=== PATIENT | male | born 1950 | race Caucasian/White ===

== ENCOUNTER 2016-07-09 08:31 | Inpatient (IN) | payer MEDICARE ==
[2016-07-09] MEDS ORDERED: SODIUM CHLORIDE 0.9% 1,000 ML IV STA (08:52)
[2016-07-09] MEDS ORDERED: RX INFO: IV CONTRAST WAS GIVEN 1 EACH MISC MISCELLANE PRN (08:52)
--- NOTE | 2016-07-09 08:55 | ED ---
General Adult HPI - General Chief complaint: Syncope Stated complaint: SYNCOPE Time Seen by Provider: 07/09/16 08:35 Source: patient, family, EMS, RN notes reviewed Mode of arrival: EMS Limitations: no limitations - History of Present Illness Initial comments: Patient is a pleasant 65-year-old male presenting to the emergency department following syncopal episode. Episode occurred this morning. Patient use the restroom and was walking to the couch. Patient felt nauseous and then passed out. No injury during the syncopal episode. Patient was unresponsive for around a minute. Patient feels normal at this time and has no complaints. Patient did have right knee surgery done just a couple of days ago at [facility]. Patient did have some discomfort prior to syncope. Patient states it was more than he normally has however was not terrible. No chest pain or dyspnea. No abdominal pain. No neck or back pain. No headache or confusion. - Related Data Home Medications Medication Instructions Recorded Confirmed Aspirin EC [Ecotrin] 325 mg PO BID 07/09/16 07/09/16 Celecoxib [CeleBREX] 200 mg PO BID 07/09/16 07/09/16 Finasteride [Proscar] 5 mg PO DAILY 07/09/16 07/09/16 Lisinopril-Hctz 10-12.5 mg 1 tab PO DAILY 07/09/16 07/09/16 [Zestoretic 10-12.5] Ropivacaine 0.2% 1 dose SQ-PUMP DAILY 07/09/16 07/09/16 oxyCODONE HCL [Roxicodone] 5 - 10 mg PO Q4H PRN 07/09/16 07/09/16 Allergies Allergy/AdvReac Type Severity Reaction Status Date / Time No Known Allergies Allergy Verified 07/09/16 10:42 Review of Systems ROS Statement: Those systems with pertinent positive or pertinent negative responses have been documented in the HPI. ROS Other: All systems not noted in ROS Statement are negative. Constitutional: Denies: fever Eyes: Denies: eye pain ENT: Denies: ear pain Respiratory: Denies: cough, dyspnea Cardiovascular: Denies: chest pain, palpitations Endocrine: Denies: fatigue Gastrointestinal: Reports: nausea. Denies: abdominal pain, vomiting Genitourinary: Denies: dysuria Musculoskeletal: Denies: back pain Skin: Denies: rash Neurological: Denies: headache, confusion Past Medical History History of Any Multi-Drug Resistant Organisms: None Reported Past Surgical History: Orthopedic Surgery Additional Past Surgical History / Comment(s): Repaired hernia, Left Knee repair , Compound fracture wrist. Past Psychological History: No Psychological Hx Reported Smoking Status: Never smoker Past Alcohol Use History: Occasional Past Drug Use History: None Reported General Exam Limitations: no limitations General appearance: alert, in no apparent distress Head exam: Present: atraumatic Eye exam: Present: normal appearance, PERRL, EOMI ENT exam: Present: normal oropharynx Neck exam: Present: normal inspection. Absent: tenderness Respiratory exam: Present: normal lung sounds bilaterally Cardiovascular Exam: Present: regular rate, normal rhythm Expanded Peripheral pulses: 2+: Radial (R), Radial (L), Dorsalis Pedis (R), Dorsalis Pedis (L) GI/Abdominal exam: Present: soft. Absent: tenderness Extremities exam: Present: other (Right knee with small bandages from recent surgery.). Absent: pedal edema, calf tenderness Neurological exam: Present: alert, oriented X3, CN II-XII intact. Absent: motor sensory deficit Expanded Patient oriented to: Present: person, place, time Speech: Present: fluid speech Cranial nerves: EOM's Intact: Normal, Facial Sensation: Normal Sensory exam: Upper Extremity Light Touch: Normal, Lower Extremity Light Touch: Normal Motor strength exam: RUE: 5, LUE: 5, RLE: 5, LLE: 5 Eye Response: (4) open spontaneously Motor Response: (6) obeys commands Verbal Response: (5) oriented Psychiatric exam: Present: normal affect, normal mood Skin exam: Absent: rash Course Vital Signs 07/09/16 07/09/16 08:35 10:52 Temperature 98.2 F Pulse Rate 87 Pulse Rate [ 95 Right Sitting Pulse Oximetery ] Pulse Rate [ 97 Right Standing Pulse Oximetery ] Pulse Rate [ 88 Right Supine Pulse Oximetery ] Respiratory 18 18 Rate Blood Pressure 129/78 Blood Pressure 123/73 [Right Arm Sitting] Blood Pressure 116/62 [Right Arm Standing] Blood Pressure 131/81 [Right Arm Supine] O2 Sat by Pulse 99 98 Oximetry EKG Findings - EKG Comments: EKG Findings:: Normal sinus rhythm at 84. Normal intervals. Normal axis. Normal QRS. Normal ST-T. Medical Decision Making - Medical Decision Making Patient reexamined and resting comfortably in bed. Patient and family were updated on results including borderline size of aorta. They are aware of need for follow-up regarding this and further monitoring in the future. Also updated on plan. Case discussed in detail with Dr. lao, who will admit for Dr. Sebastian. - Lab Data Result diagrams: 07/09/16 08:41 07/09/16 08:41 Lab Results 07/09/16 07/09/16 07/09/16 Range/Units 08:41 08:41 08:41 WBC 10.6 (3.8-10.6) k/uL RBC 3.64 L (4.30-5.90) m/uL Hgb 11.9 L (13.0-17.5) gm/dL Hct 36.0 L (39.0-53.0) % MCV 98.9 (80.0-100.0) fL MCH 32.8 (25.0-35.0) pg MCHC 33.1 (31.0-37.0) g/dL RDW 12.9 (11.5-15.5) % Plt Count 167 (150-450) k/uL Neutrophils % 84 % Lymphocytes % 11 % Monocytes % 3 % Eosinophils % 1 % Basophils % 0 % Neutrophils # 8.8 H (1.3-7.7) k/uL Lymphocytes # 1.1 (1.0-4.8) k/uL Monocytes # 0.4 (0-1.0) k/uL Eosinophils # 0.1 (0-0.7) k/uL Basophils # 0.0 (0-0.2) k/uL PT (9.0-12.0) sec INR (<1.1) APTT (22.0-30.0) sec Sodium 141 (137-145) mmol/L Potassium 5.2 H (3.5-5.1) mmol/L Chloride 105 (98-107) mmol/L Carbon Dioxide 26 (22-30) mmol/L Anion Gap 10 mmol/L BUN 15 (9-20) mg/dL Creatinine 0.88 (0.66-1.25) mg/dL Est GFR (MDRD) Af Amer >60 (>60 ml/min/1.73 sqM) Est GFR (MDRD) Non-Af >60 (>60 ml/min/1.73 sqM) Glucose 208 H (74-99) mg/dL Calcium 8.8 (8.4-10.2) mg/dL Total Bilirubin 0.9 (0.2-1.3) mg/dL AST 19 (17-59) U/L ALT 32 (21-72) U/L Alkaline Phosphatase 61 (38-126) U/L Total Creatine Kinase 152 (55-170) U/L CK-MB (CK-2) 1.1 (0.0-2.4) ng/mL CK-MB (CK-2) Rel Index 0.7 Troponin I <0.012 (0.000-0.034) ng/mL Total Protein 6.2 L (6.3-8.2) g/dL Albumin 3.7 (3.5-5.0) g/dL Urine Color Urine Appearance (Clear) Urine pH (5.0-8.0) Ur Specific [place] (1.001-1.035) Urine Protein (Negative) Urine Glucose (UA) (Negative) Urine Ketones (Negative) Urine Blood (Negative) Urine Nitrite (Negative) Urine Bilirubin (Negative) Urine Urobilinogen (<2.0) mg/dL Ur Leukocyte Esterase (Negative) 07/09/16 07/09/16 Range/Units 08:41 09:16 WBC (3.8-10.6) k/uL RBC (4.30-5.90) m/uL Hgb (13.0-17.5) gm/dL Hct (39.0-53.0) % MCV (80.0-100.0) fL MCH (25.0-35.0) pg MCHC (31.0-37.0) g/dL RDW (11.5-15.5) % Plt Count (150-450) k/uL Neutrophils % % Lymphocytes % % Monocytes % % Eosinophils % % Basophils % % Neutrophils # (1.3-7.7) k/uL Lymphocytes # (1.0-4.8) k/uL Monocytes # (0-1.0) k/uL Eosinophils # (0-0.7) k/uL Basophils # (0-0.2) k/uL PT 10.7 (9.0-12.0) sec INR 1.1 (<1.1) APTT 22.7 (22.0-30.0) sec Sodium (137-145) mmol/L Potassium (3.5-5.1) mmol/L Chloride (98-107) mmol/L Carbon Dioxide (22-30) mmol/L Anion Gap mmol/L BUN (9-20) mg/dL Creatinine (0.66-1.25) mg/dL Est GFR (MDRD) Af Amer (>60 ml/min/1.73 sqM) Est GFR (MDRD) Non-Af (>60 ml/min/1.73 sqM) Glucose (74-99) mg/dL Calcium (8.4-10.2) mg/dL Total Bilirubin (0.2-1.3) mg/dL AST (17-59) U/L ALT (21-72) U/L Alkaline Phosphatase (38-126) U/L Total Creatine Kinase (55-170) U/L CK-MB (CK-2) (0.0-2.4) ng/mL CK-MB (CK-2) Rel Index Troponin I (0.000-0.034) ng/mL Total Protein (6.3-8.2) g/dL Albumin (3.5-5.0) g/dL Urine Color Yellow Urine Appearance Clear (Clear) Urine pH 6.0 (5.0-8.0) Ur Specific [place] 1.018 (1.001-1.035) Urine Protein Trace H (Negative) Urine Glucose (UA) 2+ H (Negative) Urine Ketones Negative (Negative) Urine Blood Negative (Negative) Urine Nitrite Negative (Negative) Urine Bilirubin Negative (Negative) Urine Urobilinogen <2.0 (<2.0) mg/dL Ur Leukocyte Esterase Negative (Negative) - Radiology Data Radiology results: image reviewed (Computed tomography scan of the chest shows no evidence of pulmonary embolism. Coronary artery disease is present. Ascending aortic aneurysm 3.9 cm. Computed tomography scan of the brain shows no acute intercranial hemorrhage.) Disposition Clinical Impression: Syncope Disposition: ADMITTED IP TO THIS HOSP
[2016-07-09 09:08] LABS: Basophils % (A) 0 %; CH 32.8; CHCM 33.3; Eosinophils # (A) 0.1 k/uL (0-0.7); Eosinophils % (A) 1 %; HGB 11.9 gm/dL (13.0-17.5); Luc # (Auto) 0.08; Luc % (Auto) 1; Lymphocytes # (A) 1.1 k/uL (1.0-4.8); Lymphocytes % (A) 11 %; MCH 32.8 pg (25.0-35.0); MCHC 33.1 g/dL (31.0-37.0); MCV 98.9 fL (80.0-100.0); Mean Platelet Volume 6.6; Monocytes # (A) 0.4 k/uL (0-1.0); Monocytes % (A) 3 %; Neutrophils # (A) 8.8 k/uL (1.3-7.7); Neutrophils % (A) 84 %; RBC 3.64 m/uL (4.30-5.90); RDW 12.9 % (11.5-15.5); WBC 10.6 k/uL (3.8-10.6); WBC (Perox) 10.66
[2016-07-09 09:18] LABS: ALT 32 U/L (21-72); AST 19 U/L (17-59); Alkaline Phosphatase 61 U/L (38-126); Anion Gap 10 mmol/L; Blood Urea Nitrogen 15 mg/dL (9-20); Calcium 8.8 mg/dL (8.4-10.2); Carbon Dioxide 26 mmol/L (22-30); Chloride 105 mmol/L (98-107); Glucose 208 mg/dL (74-99); Non-African American GFR(MDRD) >60 (>60 ml/min/1.73 sqM); Potassium 5.2 mmol/L (3.5-5.1); Sodium 141 mmol/L (137-145); Total Bilirubin 0.9 mg/dL (0.2-1.3); Total Protein 6.2 g/dL (6.3-8.2)
[2016-07-09 09:23] LABS: INR 1.1 (<1.1); Partial Thromboplastin Time 22.7 sec (22.0-30.0); Prothrombin Time 10.7 sec (9.0-12.0)
[2016-07-09 09:24] LABS: Appearance,Urine Clear (Clear); Bilirubin,Urine Negative (Negative); Glucose,Urine (UA) 2+ (Negative); Ketones,Urine Negative (Negative); Leukocyte Esterase,Urine Negative (Negative); Nitrite,Urine Negative (Negative); Protein,Urine Trace (Negative); Specific Gravity,Urine 1.018 (1.001-1.035); UA Billing (MACRO vs. MICRO) CHEM; Urobilinogen,Urine <2.0 mg/dL (<2.0)
[2016-07-09 09:27] LABS: Creatine Kinase 152 U/L (55-170)
[2016-07-09 09:41] LABS: Creatine Kinase MB 1.1 ng/mL (0.0-2.4); Troponin I <0.012 ng/mL (0.000-0.034)
--- NOTE | 2016-07-09 10:02 | CT ---
EXAMINATION TYPE: CT brain wo con DATE OF EXAM: 07/09/2016 9:55 AM COMPARISON: NONE HISTORY: syncope CT DLP: 1022 mGycm Automated exposure control for dose reduction was used. FINDINGS: There is no acute intracranial hemorrhage, mass effect, or midline shift identified. The ventricles and sulci are within normal limits in size. The globes are intact and the visualized sinuses are rem arkable for inflammatory change in the left maxillary sinus. IMPRESSION: No acute intracranial hemorrhage, mass effect, or midline shift is seen.
--- NOTE | 2016-07-09 10:13 | CT ---
EXAMINATION TYPE: CT angio chest DATE OF EXAM: 07/09/2016 9:56 AM COMPARISON: NONE HISTORY: Syncope, recent knee surgery CT DLP: 355.8 mGycm Automated exposure control for dose reduction was used. CONTRAST: CTA scan of the thorax is performed with IV Contrast, patient injected with 100 mL of Omnipaque 350, pulmonary embolism protocol. MIP images are created and reviewed. 3D reconstructed images are creat ed on an independent workstation and reviewed. FINDINGS: LUNGS: Patchy basilar atelectatic changes are present. Small hiatal hernia is present. AORTA: Ascending aorta is borderline enlarged measuring 3.9 cm, pulmonary artery order line at 3.2 c m, consider pulmonary artery hypertension . MEDIASTINUM: There is satisfactory enhancement of the pulmonary artery and its branches, there is no CT evidence for pulmonary embolism. There are no greater than 1 cm hilar or mediastinal lymph nodes. Some prevascular nodes are present. There are coronary artery calcifications. No pericardial effusi on is seen. OTHER: No additional significant abnormality is seen. IMPRESSION: NO EVIDENT PULMONARY EMBOLISM. CORONARY ARTERY DISEASE, ASCENDING AORTIC ANEURYSM, POSSIBLE PULMONARY ARTERY HYPERTENSION AND PREVASCULAR LYMPH NODE. CONSIDER FOLLOW-UP.
[2016-07-09] MEDS ORDERED: MORPHINE SULFATE 4 MG/ML SYRINGE IV PRN (10:59)
[2016-07-09] MEDS ORDERED: NALOXONE 0.4 MG/ML 1 ML VIAL IV PRN (10:59)
[2016-07-09] MEDS ORDERED: SODIUM CHLORIDE 0.9% 1,000 ML IV SCH (11:00)
[2016-07-09] MEDS ORDERED: LISINOPRIL-HCTZ 10-12.5 MG 1 EACH TAB PO SCH (12:30)
[2016-07-09] MEDS: MELOXICAM 7.5 MG TAB PO SCH ×2 (14:03→21:43)
[2016-07-09] MEDS: ASPIRIN 325 MG TAB PO SCH ×2 (14:03→21:43)
[2016-07-09] MEDS: FINASTERIDE 5 MG TAB PO SCH (14:04)
[2016-07-09] MEDS: HYDROcodone/APAP 5-325MG 1 EACH TAB PO PRN ×3 (14:11→23:09)
--- NOTE | 2016-07-09 21:25 | HP ---
DATE OF ADMISSION: 07/09/2016 PRESENTING COMPLAINT: Passed out. HISTORY OF PRESENTING COMPLAINT: A very pleasant 65-year-old patient of Dr. Sebastian who has a history of hypertension, BPH, 2 days ago underwent a right total knee replacement at [facility], was sent home yesterday. This morning, patient went to have a bowel movement, was straining himself, did not have a bowel movement, came out and felt dizzy and then passed out. Patient was passed out for about a minute. There was no tongue biting. No incontinence. No seizure activity was reported. Denies any chest pain or palpitation. Just felt tired and run down. REVIEW OF SYSTEMS: CONSTITUTIONAL: Tired. HEENT: None. RESPIRATORY: None. CARDIOVASCULAR: None. GASTROINTESTINAL: None. GENITOURINARY: None. MUSCULOSKELETAL: Arthritic pain in the joints. DERMATOLOGICAL: None. HEMATOLOGIC: None. LYMPHATICS: None. PSYCHIATRY: None. NEUROLOGICAL: None. Past history of hypertension, BPH, osteoarthritis. PAST SURGICAL HISTORY: Left knee repair, compound wrist fracture, cataract left side. SOCIAL HISTORY: No smoking. Alcohol occasionally. Patient used to work in construction. . Family history of AAA. HOME MEDICATIONS: 1. Ropivacaine 0.2% 1 dose pump daily. 2. Celebrex 200 mg p.o. b.i.d. 3. Aspirin 325 mg p.o. b.i.d. 4. Oxycodone 5 to 10 mg q.4 p.r.n. 5. Zestoretic /12.5, 1 tablet daily. 6. Proscar 5 mg p.o. daily. ALLERGIES: None. On examination, temperature 97.9, pulse 83, respirations 16, blood pressure 116/73, pulse ox 95% on 2L. GENERAL APPEARANCE: Lying in bed, tired-appearing. EYES: Pupils equal. Conjunctivae normal. HEENT: Oral cavity normal. NECK: JVD not raised. Mass not palpable. RESPIRATORY: Effort normal. LUNGS: Clear. CARDIOVASCULAR: First and second sounds normal. No edema. ABDOMEN: Soft, nontender. Liver and spleen not palpable. LYMPHATIC: No lymph nodes palpable in neck or axillae. PSYCHIATRY: Alert and oriented x3. Mood and affect normal. MUSCULOSKELETAL: Evidence of osteoarthritis in the hands. Right knee is healing well. INVESTIGATIONS: White count 10.6, hemoglobin 11.9. Potassium 5.2, BUN and creatinine are normal. ASSESSMENT: 1. This is a patient who presents with a syncopal episode, has had surgery. Must have lost some blood, as hemoglobin is down to 11.9. His blood pressure is a bit on the lower side, too well-controlled, I guess. The patient had not eaten in the morning, eats in the morning and straining quite a bit at stool this morning when the episode occurred and most likely this is a vasovagal. Will need to rule out a cardiac cause. 2. Normocytic anemia, could be blood loss. I do not have a baseline. 3. Mild hyperkalemia. PLAN: As the blood pressure is relatively speaking too well controlled, I will hold off patient's lisinopril/hydrochlorothiazide. Patient getting some IV fluids. Home medications are resumed. Patient on telemetry. Serial cardiac enzymes are in place. Care was discussed with the patient.
[2016-07-10] MEDS: HYDROcodone/APAP 5-325MG 1 EACH TAB PO PRN ×4 (03:58→16:40)
[2016-07-10] MEDS: ASPIRIN 325 MG TAB PO SCH (08:16)
[2016-07-10] MEDS: MELOXICAM 7.5 MG TAB PO SCH (08:16)
[2016-07-10] MEDS: FINASTERIDE 5 MG TAB PO SCH (08:17)
[2016-07-10] MEDS ORDERED: ROPIVACAINE 0.2% SQ-PUMP SCH (09:00)
[2016-07-10 09:38] VITALS: RESP 18; TEMP 96.4
[2016-07-10 12:05] VITALS: BP 132/82; PULSE 89
--- NOTE | 2016-07-11 13:28 | DS ---
DATE OF ADMISSION: 07/09/2016 DATE OF DISCHARGE: 07/10/2016 FINAL DIAGNOSES: 1. Syncope probably from vasovagal and relative hypotension. 2. Normocytic anemia; could be from blood loss from recent surgery as expected. 3. Mild hyperkalemia. HOSPITAL COURSE: This is a patient who had recent surgery. The next day had a syncopal episode. Hemoglobin was a bit down. I did hold off patient's blood pressure medications, given some fluids. Telemetry remained unremarkable. Patient was told to resume his blood pressure medications when blood pressure came up to about 140 systolic. Care was discussed with the patient and family. On exam, lungs are clear. CARDIOVASCULAR: First and second sounds normal. Telemetry was unremarkable. DISCHARGE MEDICATIONS: 1. Aspirin 325 mg p.o. b.i.d. 2. Celebrex 200 mg p.o. b.i.d. 3. Proscar 5 mg p.o. daily. 4. Zestoretic 01/05.5 to be resumed when blood pressure goes up to 140 systolic. 5. Ropivacaine pain pump. 6. Oxycodone 5 to 10 mg q.4 p.r.n. Follow up with Dr. Sebastian in 2 days. Patient also will take MiraLAX every other day for constipation.
== END 2016-07-10 17:58 | disposition home or self-care (01) | DRG 316 ==
LOC: EC 08:31 → 6SEL 10:59
PROVIDERS: ADMIT Hospitalist; ATTEND Hospitalist
DX: I95.9 Hypotension, unspecified (principal); E87.5 Hyperkalemia; I10 Essential (primary) hypertension; D64.9 Anemia, unspecified; Z98.42 Cataract extraction status, left eye; N40.0 Benign prostatic hyperplasia without lower urinary tract symptoms; Z96.651 Presence of right artificial knee joint; Z79.82 Long term (current) use of aspirin; Z79.899 Other long term (current) drug therapy
CPT/HCPCS: 36415; 70450; 71275; 80053; 81003; 82550; 82553; 84484; 85025; 85610; 85730; 93005; 99285

== ENCOUNTER → 2021-06-08 | Outpatient (CLI) | payer MEDICARE ==
--- NOTE | 2021-06-08 16:22 | NM ---
EXAMINATION TYPE: NM bone 3 phase DATE OF EXAM: 06/08/2021 COMPARISON: NONE HISTORY: 70-year-old male [id number]. Patient with right knee pain for 6 to 7 months. History of right k nee replacement 4 years ago. Technique: Triple phase bone scintigraphy was performed following the injection of 21.7 mCi Tc 99m MD P. Immediate and pool images as well as 5.5 hours post injection images acquired. Imaging centered at the bilateral knees. FINDINGS: There may be slight asymmetric hyperemia on the right. Corresponding asymmetric increased uptake on p ool images and on delayed scan as well. IMPRESSION: Increased three-phase activity about the right knee with underlying arthroplasty. Loosening not exclu ded.
== END | disposition home or self-care (01) ==
LOC: RADNMMAIN 07:18
PROVIDERS: ATTEND Orthopaedic Surgery Adult Reconstructive Orthopaedic Surgery
DX: Z96.651 Presence of right artificial knee joint (principal)
CPT/HCPCS: 78315; A9503

== ENCOUNTER 2021-08-19 05:33 | Day surgery (SDC) | payer MEDICARE ==
[2021-08-17 17:05] VITALS: BMI 24.8
[~2021-08-19 05:33] MED LIST: ACETAMINOPHEN TAB 500 MG TAB PO PRN; GABAPENTIN 300 MG CAP PO PRN; MELOXICAM 7.5 MG TAB PO PRN; ONDANSETRON 4 MG/2 ML VIAL IVP PRN; TRANEXAMIC ACID IN NACL,ISO-OS 1,000 MG in SALINE 1 100ML.BAG IVPB PRN
[2021-08-19] MEDS ORDERED: LACTATED RINGERS 1,000 ML IV ONE ×2 (05:45→08:32)
[2021-08-19] MEDS ORDERED: MIDAZOLAM 2 MG/2 ML VIAL IVP ONE (06:50)
[2021-08-19] MEDS ORDERED: NEOSTIGMINE 1 MG/ML 10 ML VIAL ONE (07:04)
[2021-08-19] MEDS ORDERED: HYDROmorphone (PF) 1 MG/ML ONE (07:04)
[2021-08-19] MEDS ORDERED: TRANEXAMIC ACID IN NACL,ISO-OS 1,000 MG/100 ML BAG ONE (07:04)
[2021-08-19] MEDS ORDERED: ROPIVACAINE 5 MG/ML 30 ML VIAL ONE (07:04)
[2021-08-19] MEDS ORDERED: ePHEDrine 50 MG/ML 1 ML VIAL ONE (07:04)
[2021-08-19] MEDS ORDERED: SUCCINYLCHOLINE CHLORIDE 100 MG/5 ML SYR IV ONE (07:04)
[2021-08-19] MEDS ORDERED: ROCURONIUM 10 MG/ML (5 ML VIAL) IV ONE (07:04)
[2021-08-19] MEDS ORDERED: GLYCOPYRROLATE 0.2 MG/ML 2 ML VIAL ONE (07:04)
[2021-08-19] MEDS ORDERED: LIDOCAINE 2% INJ 20 MG/ML (2 ML VIAL) ONE (07:04)
[2021-08-19] MEDS ORDERED: PROPOFOL 10 MG/ML 20 ML VIAL IV ONE (07:04)
[2021-08-19] MEDS ORDERED: PHENYLEPHRINE-0.9% NACL SYG 1,000 MCG/10 ML SYRINGE ONE (07:04)
[2021-08-19] MEDS ORDERED: ceFAZolin 3,000 MG in SODIUM CHLORIDE 0.9% IRRIGATIO 3,000 ML IRRIGATION ONE (07:43)
[2021-08-19] MEDS ORDERED: VANCOMYCIN 1,000 MG VIAL MISCELLANE ONE (07:43)
[2021-08-19] MEDS ORDERED: MIDAZOLAM 2 MG/2 ML VIAL IV PRN (08:27)
[2021-08-19] MEDS ORDERED: ONDANSETRON 4 MG/2 ML VIAL IVP ONE ×2 (08:27→10:40)
[2021-08-19] MEDS ORDERED: DEXAMETHASONE SOD PHOSPHATE 4 MG/ML 1 ML VIAL IV ONE (08:27)
[2021-08-19] MEDS ORDERED: LIDOCAINE 1% (10MG/ML) FOR IV START INTRADERMA PRN (08:27)
[2021-08-19] MEDS ORDERED: HYDROmorphone 0.5 MG/0.5 ML SYRINGE IVP PRN ×3 (08:27→09:43)
[2021-08-19] MEDS ORDERED: hydrOXYzine pamoate 25 MG CAP PO PRN (09:43)
[2021-08-19] MEDS ORDERED: diphenhydrAMINE 25 MG CAP PO PRN (09:43)
[2021-08-19] MEDS ORDERED: METOCLOPRAMIDE 5 MG/ML 2 ML VIAL IVP PRN (09:43)
[2021-08-19] MEDS ORDERED: ONDANSETRON 4 MG/2 ML VIAL IVP PRN (09:43)
[2021-08-19] MEDS ORDERED: PROCHLORPERAZINE SUPPOSITORY 25 MG SUPP RECTAL PRN (09:43)
--- NOTE | 2021-08-19 10:18 | OP ---
OPERATIVE REPORT DATE OF PROCEDURE: 08/19/2021. SURGEON: Tyson Quigley MD. RECREATION ASSISTANT: Lauro BAEZ. PREOPERATIVE DIAGNOSIS: Right shoulder osteoarthrosis. POSTOP DIAGNOSIS: Right Shoulder osteoarthrosis. OPERATION: Right total shoulder arthroplasty. ANESTHESIA: General endotracheal. ESTIMATED BLOOD LOSS: 200 mL. DRAINS: One deep drain. COMPLICATIONS: None apparent. DISPOSITION: Postanesthesia care unit. INDICATIONS: Mr. Boss is a very pleasant 70-year-old male with longstanding right shoulder pain. Workup including x-rays revealed advanced osteoarthrosis of the right shoulder. At this point, it is felt that he has failed conservative management and he would like to proceed with operative intervention. The risks of procedure were discussed with him in detail. These risks include, but are not limited to risk of infection, nerve damage, bleeding, pain, instability in the shoulder, loosening of the implants and deep infection. There is also risk of deep vein thrombosis which could lead to fatal pulmonary embolism. Of note, Mr. Boss has a DOCUMENTED HEAVY METAL ALLERGY. We prepared for this and only metal sensitive implants were in the room. The patient understood the risks. All of his questions with regards to the risks of procedure were answered to his satisfaction. Appropriate informed consent was obtained. DESCRIPTION OF PROCEDURE: Patient identified in preoperative holding area. Surgical site was marked by both the patient and myself. He was given 2 grams of Ancef for IV prophylactic purposes. He was then transferred to the operative suite. He was placed supine on the operative table. A general anesthetic was then administered and dosed per the anesthesia without apparent complication. Examination under anesthesia was then performed of the right shoulder. Elevation to 110 degrees. External rotation to the side was to 20 degrees. The patient was then placed into the beach chair position well-padded in preparation for surgery. Great care was taken to ensure the cervical spine was in neutral alignment, well-padded and maintained that way throughout the operative procedure. Great care was also taken to ensure that his legs were appropriately padded as well. The patient's right upper extremity was then prepped and draped in usual sterile fashion. Standard surgical pause undertaken to ensure that we were operating on the correct site and that appropriate preoperative antibiotics had been given. All staff in the room were in agreement and we proceeded. The acromion, AC joint, clavicle and coracoid were marked with a surgical pen. A planned incision starting at the level of the clavicle extending distally over the deltopectoral interval approximately 1 cm lateral to the coracoid was marked with a surgical pen. The incision was then made with a 10 blade scalpel. Dissection was carried down sharply to the deltoid fascia. Hemostasis was achieved with electrocautery. The deltopectoral interval was then identified at the level of the clavicle. A small band retractor was then placed onto the proximal deltoid. I then released the deltoid fascia on the lateral aspect of the cephalic vein. The vein was preserved and left in its bed medially. The cephalic vein was protected throughout the entire case. I then identified the clavipectoral fascia. This was incised proximally at the level of the coracoacromial ligament. The coracoacromial ligament was left intact. I then used my finger to spread the interval between the conjoined tendon of the subscapularis. I felt for the axillary nerve which was readily palpable. Subacromial and subdeltoid spaces were cleared of bursal and scar tissue. I then used a brown retractor to hold the deltoid and expose the humeral head. I then proceeded to release the subscapularis in the anterior inferior shoulder capsule. The rotator cuff was inspected. The rotator cuff was found to be intact. The rotator interval was then identified. The course of the biceps tendon was also identified. I then released the biceps tendon in the groove and tenodesed it with 0 Vicryl interrupted sutures to the surrounding soft tissue. I then released the rotator interval. This was released at the base of the coracoid and then out laterally. The subscapularis and the capsule were then released intratendinously. The subscapularis and capsule release extended distally in a lazy-S fashion approximately 1 cm medial to the biceps tendon. I then continued to release the capsule along the inferior neck in a vertical fashion to approximately the 6 o'clock position. Great care was taken to ensure the capsule was always visualized as released to avoid injuring the axillary nerve. Then brought the [place] director of investigations with the arm externally rotated and abducted. I continued to release the capsule inferomedially to the 4 o'clock position. The inferior osteophytes were now removed as well. This was done with a rongeur. I then proceeded with preparation of the humerus. I removed all the goat's germain osteophytes. I then removed the subchondral plate from the superior aspect of the humeral head utilizing a large rongeur. I then used the starting reamer to gain access to the humeral canal. This was 1 cm medial to the rotator cuff insertion and 1 cm posterior to the bicipital groove. I then prepared the humeral canal with hand reaming. I started with a 6 mm reamer and progressed incrementally in 2 mm increments until firm resistance was encountered. This was at 14 mm. The reamer handle was then left in place. I then utilized a humeral resection guide set at 30 degrees of retrotorsion. The cutting block was then set at 1-2 mm above the insertion of the rotator cuff. I then proceeded to osteotomize the humeral head with an oscillating saw. I removed the resection guide and then completed the osteotomy. I then proceeded with trial stem placement. Trial size 14 was then broached in the canal starting with a 6 mm broach and then incrementally increasing up to a 14 mm broach. The 14 mm trial stem was then left in place. I then proceeded with trial reduction. I started with a 46 x 21 x 50 head. This seemed to fit very nicely. The head fit opposite the glenoid. The rotator cuff was not tented. The internal rotation was 90 degrees. Elevation was 150 degrees and translation was one half of the head in neutral rotation and one quarter of the head inferiorly in 15-20 degrees of abduction. I then removed the trial head. The stem was left in place to protect the proximal humerus. I then proceeded with exposure of the glenoid. At this point, I did remove the remaining biceps tendon. A bone hook was then used to pull the humerus out laterally. I then inspected the joint for any loose bodies. The condition of the cuff was again inspected. The rotator cuff was in excellent condition. A Battman retractor was then placed on the posterior glenoid rim. The arm was placed in approximately 80 degrees of abduction and in slight flexion on a [place] stand. I then proceeded to remove the hypertrophic labrum to definitively identify the actual glenoid. I then selected the size of the glenoid. A size 4 glenoid seemed to fit very nicely. There were fairly significant peripheral osteophytes around the glenoid. These were removed with a rongeur. I then utilized a starting drill to make the centering hole. I then proceeded to ream the glenoid fossa. This was done with a size 4 reamer. The reaming was taken down to a paprika sign. Nice bleeding surface. I did as minimal reaming as possible to preserve as much subchondral bone as possible. There was a tiny bit of posterior inferior loss. I preferentially took off slightly more anterior glenoid with the reaming. I then proceeded to place the glenoid drill holes. The peripheral drill holes were then placed and the center hole was drilled as well. I then placed a trial size 4 glenoid and it fit very nicely on the glenoid. I then proceeded with cementing. I then [place] the wound and the bone. The drill holes were then packed with Ray-David sponges. One pack of antibiotic bone cement was prepared on the back table by the surgical elastic knitter. The peripheral drill holes were then packed with cement utilizing a 20 mL syringe. These were packed very tightly. A small amount of cement was then placed on the posterior aspect of the real glenoid component. There was not any cement placed in the central PEG. I then impacted the real glenoid component into place. It was a Biomet size 4 pegged glenoid component with the Regenerex central PEG. Excess cement was then removed utilizing a [place] elevator. Pressure was then held on the glenoid component until the cement had hardened. I then removed the Battman retractor. We then proceeded with humeral component trial reduction with the real glenoid. The 46 x 21 x 50 head was then placed back onto the stem. Again, this was taken through a trial. The head set opposite of the glenoid. The rotator cuff was not tented. Elevation was to 150 degrees; internal rotation at 90 degrees and translation was one half of the head in neutral rotation and one quarter of the head in 15-20 degrees of abduction. I then had the outside dealer sales representative open a size 14 Biomet mini stem and a 46 x 21 x 51 mm real head. I then placed multiple 0 Vicryl sutures in the rotator interval prior to placing the real stem. The real stem was then impacted into the canal in 30 degrees of retrotorsion. The Carmen taper was dried and the real head was then impacted onto the stem. The shoulder was then reduced. I then proceeded with closure. Again, the wound and the joint was thoroughly irrigated with sterile saline solution with antibiotic added. Aricept antiseptic irrigation was also utilized at this time. The rotator interval sutures were closed tightly. The subscapularis and anterior capsule were then repaired with interrupted #2 FiberWire sutures. A deep drain was then placed and brought out superiorly away from the incision. At this time, I did feel for the axillary nerve which was readily palpable as well and was uninjured. Approximately 500 mg of vancomycin powder was placed deep. The deltopectoral was then closed with 0-Vicryl interrupted suture. The remaining 500 mg of vancomycin powder was then placed subcutaneously. The subcutaneous tissue was then closed with 2-0 Vicryl interrupted suture and the skin was closed with a running 3-0 Quill suture. Sterile compressive dressings were applied. The patient's right upper extremity was placed into a shoulder immobilizer. All sponge and needle counts were deemed correct prior to closure. The patient tolerated procedure without apparent complication. He was transferred to recovery room in stable condition. TIGRE / OSMAR: [id number] /
--- NOTE | 2021-08-19 14:45 | XR ---
Right shoulder Limited HISTORY: Postop Single frontal view of the right shoulder Patient is status post right shoulder arthroplasty. There is anatomic alignment on this single view a nd an indwelling drain. Arthropathy present at the acromioclavicular joint. Visualized portions of th e right lung are unremarkable. There are overlying artifacts. Lucency in the soft tissues consistent with postop change. IMPRESSION: Orthopedic follow-up.
[2021-08-19] MEDS: LACTATED RINGERS 1,000 ML IV SCH ×3 (16:42→20:09)
[2021-08-19] MEDS: SENNOSIDES-DOCUSATE SODIUM 1 EACH TAB PO PRN (17:23)
[2021-08-19] MEDS: HYDROcodone/APAP 7.5-325MG 1 EACH TAB PO PRN ×2 (17:23→22:08)
--- NOTE | 2021-08-19 17:24 | P.ANPRN ---
Procedure Note - Anesthesia - Nerve Block Performed Right Interscalene Time Out Performed: Yes (06:49) Date of Procedure: 08/19/21 Procedure Start Time: :49 Procedure Stop Time: :59 Location of Patient: PreOp Indication: Acute Post-Operative Pain, Requested by Surgeon (Dr Quigley) Sedation Type: Sedate with meaningful contact maintained Preparation: Sterile Prep Position: Supine Catheter: None Needle Types: Pajunk Needle Gauge: Other (see comment) (22g) Ultrasound used to visualize needle placement: Yes Ultrasound used to observe medication spread: Yes Injectate: 0.5% Ropivacaine (see comment for volume) (20cc) Blood Aspirated: No Pain Paresthesia on Injection Noted: No Resistance on Injection: Normal Image Stored and Saved: Yes Events: Uneventful and Well Tolerated
[2021-08-19] MEDS: HYDROmorphone 0.5 MG/0.5 ML SYRINGE IVP PRN (19:29)
[2021-08-20] MEDS: HYDROmorphone 0.5 MG/0.5 ML SYRINGE IVP PRN ×2 (00:27→03:32)
[2021-08-20] MEDS: LACTATED RINGERS 1,000 ML IV SCH ×3 (04:48→16:22)
[2021-08-20] MEDS: HYDROcodone/APAP 7.5-325MG 1 EACH TAB PO PRN ×4 (07:56→21:46)
--- NOTE | 2021-08-20 10:36 | P.DS ---
Providers Expected date of discharge: 08/20/21 Attending physician: Tyson Quigley Consults: 08/19/21 09:43 Consult Physician Routine Consulting Provider: Rafael Velazco Consult Reason/Comments: post op medical management Do you want consulting provider notified?: Yes Primary care physician: Tahir Sebastian - Discharge Diagnosis(es) (1) Osteoarthritis of right shoulder Patient was admitted to the OR on 08/19/21 to undergo a right total shoulder arthroplasty. He had failed conservative measures as an outpatient and desired to proceed with elective surgery after given informed consent. He underwent the above procedure which he tolerated well without complication. Postoperative hospital course has remained without complication. On day of discharge he is afebrile, vital signs stable, labs within acceptable ranges, tolerating by mouth meds and diet, voiding without difficulty, positive flatus, denies abdominal pain or calf pain, pain is controlled on oral pain medication and has no new complaints. Wound is benign, neurovascular status is intact, calf is soft and nontender, abdomen soft and nontender. Review of systems is negative for numbness, tingling, fever, chills, chest pain, shortness of breath, nausea, vomiting, dizziness, headaches, slurred speech or other. Current Visit: Yes Status: Acute Priority: Medium Procedures: Right TSA Patient Condition at Discharge: Good Plan - Discharge Summary Discharge Rx Participant: Yes New Discharge Prescriptions: New Docusate [Colace] 100 mg PO BID #60 capsule Doxycycline Hyclate 100 mg PO BID #10 tab HYDROcodone/APAP 7.5-325MG [[place] 7.5-325] 1 - 2 each PO Q6HR PRN #42 tab PRN Reason: Pain No Action Finasteride [Proscar] 5 mg PO Q48H Lisinopril-Hctz 10-12.5 mg [Zestoretic 10-12.5] 1 tab PO DAILY Discharge Medication List Finasteride [Proscar] 5 mg PO Q48H 07/09/16 [History] Lisinopril-Hctz 10-12.5 mg [Zestoretic 10-12.5] 1 tab PO DAILY 07/09/16 [History] Docusate [Colace] 100 mg PO BID #60 capsule 08/19/21 [Rx] Doxycycline Hyclate 100 mg PO BID #10 tab 08/19/21 [Rx] HYDROcodone/APAP 7.5-325MG [[place] 7.5-325] 1 - 2 each PO Q6HR PRN #42 tab 08/19/21 [Rx] Follow up Appointment(s)/Referral(s): Tyson Quigley MD [STAFF PHYSICIAN] - 10 Days Activity/Diet/Wound Care/Special Instructions: take meds as directed F/U in office maintain sling keep wound clean and dry may shower in 3 days if no bleeding or drainage Discharge Disposition: HOME SELF-CARE
[2021-08-20 11:37] LABS: Basophils # (A) 0.02 X 10*3/uL (0.00-0.10); Basophils % (A) 0.3 %; Eosinophils # (A) 0.04 X 10*3/uL (0.04-0.35); Eosinophils % (A) 0.6 %; HCT 32.3 % (39.6-50.0); HGB 10.6 g/dL (13.0-17.0); Immature Grans, Automated 0.4 %; Lymphocytes # (A) 0.57 X 10*3/uL (0.90-5.00); Lymphocytes % (A) 7.9 %; MCH 32.5 pg (27.0-32.0); MCHC 32.8 g/dL (32.0-37.0); MCV 99.1 fL (80.0-97.0); Mean Platelet Volume 10.2 fL (9.5-12.2); Monocytes # (A) 0.56 X 10*3/uL (0.20-1.00); Monocytes % (A) 7.7 %; NRBC Per 100 WBC 0 /100 WBCS (0.0-0.0); Neutrophils # (A) 6.04 X 10*3/uL (1.80-7.70); Neutrophils % (A) 83.1 %; Platelet Count 139 X 10*3/uL (140-440); RBC 3.26 X 10*6/uL (4.40-5.60); WBC 7.26 X 10*3/uL (4.50-10.00)
[2021-08-20] MEDS ORDERED: FINASTERIDE 5 MG TAB PO SCH (12:00)
[2021-08-20] MEDS ORDERED: TAMSULOSIN 0.4 MG CAP.ER.24H PO SCH (18:30)
--- NOTE | 2021-08-20 18:53 | P.GSCN ---
History of Present Illness Consult date: 08/20/21 Reason for Consult: Urinary retention Requesting physician: Tremaine Montes History of present illness: The patient is a 70-year-old white male well known to me. He has a known history of BPH. He underwent a prostate ultrasound in 2008, revealing a prostate volume of 65 mL. He has taken finasteride 5 mg every other day for the past several years. He was seen in the office last week. His most recent PSA level was 2.0, and LETTY revealed the prostate to be moderately enlarged but smooth. He has been verified in the past to empty his bladder completely. He underwent a right total shoulder arthroplasty yesterday and developed postoperative urinary retention. I am consulted for this reason. Review of Systems - Genitourinary Reports as per HPI Past Medical History Past Medical History: Hyperlipidemia, Hypertension, Osteoarthritis (OA), Prostate Disorder Additional Past Medical History / Comment(s): BPH. Rt shoulder, bilat wrist pain. History of Any Multi-Drug Resistant Organisms: None Reported Past Surgical History: Hernia Repair, Joint Replacement, Orthopedic Surgery Additional Past Surgical History / Comment(s): Repaired hernia x4, Bilat Total Knee, ORIF Compound fracture Rt wrist, cataract left Past Anesthesia/Blood Transfusion Reactions: No Reported Reaction Past Psychological History: No Psychological Hx Reported Smoking Status: Never smoker Past Alcohol Use History: Occasional Past Drug Use History: None Reported - Past Family History Mother Family Medical History: No Reported History Father Family Medical History: Hypertension Additional Family Medical History / Comment(s): AAA Brother(s) Family Medical History: Cancer Additional Family Medical History / Comment(s): thyroid cancer Medications and Allergies Home Medications Medication Instructions Recorded Confirmed Type Finasteride [Proscar] 5 mg PO Q48H 07/09/16 08/19/21 History Lisinopril-Hctz 10-12.5 mg 1 tab PO DAILY 07/09/16 08/19/21 History [Zestoretic 10-12.5] Docusate [Colace] 100 mg PO BID #60 capsule 08/19/21 Rx Doxycycline Hyclate 100 mg PO BID #10 tab 08/19/21 Rx HYDROcodone/APAP 7.5-325MG [[place] 1 - 2 each PO Q6HR PRN #42 tab 08/19/21 Rx 7.5-325] Allergies Allergy/AdvReac Type Severity Reaction Status Date / Time bee venom protein (honey bee) Allergy Anaphylaxis Verified 08/17/21 16:36 heavy metals Allergy problems Uncoded 08/17/21 16:36 with knee implant for years Surgical - Exam Vital Signs Temp Pulse Resp BP Pulse Ox 98.2 F 71 18 116/77 98 08/19/21 06:01 08/19/21 06:01 08/19/21 06:01 08/19/21 06:01 08/19/21 06:01 - General well developed, well nourished, no distress - Respiratory normal respiratory effort - Psychiatric oriented to time, oriented to person, oriented to place, speech is normal, memory intact Results - Labs 08/20/21 07:06 Abnormal Lab Results - Last 24 Hours (Table) 08/20/21 Range/Units 07:06 RBC 3.26 L (4.40-5.60) X 10*6/uL Hgb 10.6 L (13.0-17.0) g/dL Hct 32.3 L (39.6-50.0) % MCV 99.1 H (80.0-97.0) fL MCH 32.5 H (27.0-32.0) pg Plt Count 139 L (140-440) X 10*3/uL Lymphocytes # 0.57 L (0.90-5.00) X 10*3/uL Assessment and Plan (1) Retention of urine, unspecified Current Visit: Yes Status: Acute Code(s): R33.9 - RETENTION OF URINE, UNSPECIFIED SNOMED Code(s): 148163859 Plan: It would be my suggestion that Mr. Boss be discharged home with the Raygoza catheter in place, to reduce the likelihood that he develops recurrent urinary retention over the holiday weekend. He will take tamsulosin in addition to finasteride, and I have asked him to contact my office on August 24 to arrange removal of the Raygoza catheter. Time with Patient: Less than 30
[2021-08-20] MEDS: SENNOSIDES-DOCUSATE SODIUM 1 EACH TAB PO PRN (19:59)
[2021-08-21] MEDS: HYDROmorphone 0.5 MG/0.5 ML SYRINGE IVP PRN (00:05)
[2021-08-21] MEDS: LACTATED RINGERS 1,000 ML IV SCH ×2 (01:17→12:18)
[2021-08-21 07:37] VITALS: RESP 17
[2021-08-21] MEDS ORDERED: FINASTERIDE 5 MG TAB PO SCH (09:00)
[2021-08-21] MEDS ORDERED: bisacodyL 10 MG SUPP RECTAL STA (09:57)
--- NOTE | 2021-08-21 10:13 | P.DS ---
Providers Date of admission: 08/19/2021 Expected date of discharge: 08/21/21 Attending physician: Tyson Quigley Consults: 08/19/21 09:43 Consult Physician Routine Consulting Provider: Rafael Velazco Consult Reason/Comments: post op medical management Do you want consulting provider notified?: Yes 08/20/21 14:26 Consult Physician Routine Consulting Provider: Bari Oquendo Consult Reason/Comments: urinary retention. post op Do you want consulting provider notified?: Yes Primary care physician: Tahir Sebastian - Discharge Diagnosis(es) (1) Status post total replacement of right shoulder Current Visit: Yes Status: Acute (2) Hyperlipidemia Current Visit: Yes Status: Acute (3) Hypertension Current Visit: Yes Status: Acute (4) Right shoulder pain Current Visit: Yes Status: Acute (5) Constipation Current Visit: Yes Status: Acute (6) Osteoarthritis of right shoulder Current Visit: Yes Status: Acute Priority: Medium (7) Retention of urine, unspecified Current Visit: Yes Status: Acute Hospital Course: This is a pleasant 70-year-old male who presented with right shoulder osteoarthrosis who failed outpatient conservative therapy. He was admitted for a right total shoulder arthroplasty. The patient tolerated the procedure well and did well postoperatively in regards to his right shoulder. His surgical site over the right shoulder is clean dry and intact. He has no active drainage from the surgical site of the right shoulder. His right shoulder pain has been medically controlled. He is currently utilizing a sling for the right upper extremity. He is planning for discharge home yesterday but had difficulty with urinary retention. He is been seen by urology. A Raygoza catheter has been reinserted. Urology plans to have the patient discharged home with his Raygoza catheter and intact with plans for him to contact the office this coming 08/24/2021, to schedule follow-up evaluation. He has been started on finasteride and Flomax. He is not having difficulty with urination since the reinsertion of his Raygoza catheter. Since being seen and examined yesterday, he states he has not had a bowel movement since Monday and feels he is constipated. He states his bowel movements are usually very regular and daily. He feels he has some abdominal distention but is passing lots of gas. He feels he would like to have a bowel movement prior to discharge home. We did discuss we would order a Dulcolax suppository to help facilitate him and having a bowel movement. Patient feels is a good plan of care. Patient is also given a prescription for Colace 100 mg twice a day. We did discuss we could clear him from discharge from an orthopedic standpoint if he is able to have a bowel movement and is clear for discharge by medicine and urology. We'll plan for medicine and/or urology to manage his medications including Flomax and finasteride. Condition on day of discharge stable. Patient will be discharged home. Patient was cleared preoperatively for surgery by Dr. Sebastian. Patient currently denies any nausea, vomiting, fever, or chills. Patient is eating without difficulty. Dressing over the right shoulder has been removed. We did discuss patient may shower without a dressing intact over the right shoulder at the surgical site continues to remain clean, dry, and intact over the next 72 hours. Patient should continue to maintain a sling for the right upper extremity. He should avoid excessive activities and lifting with his right upper extremity. He may perform light activities with the right hand. He'll plan to follow up with Dr. Quigley at [facility] as scheduled on 08/27/2021 at 1:15 PM. MAPS was previously reviewed. An "Opiod Start Talking" Form has been signed and placed in the patient's chart. A prescription has been written for [place] 7.5 mg/325 mg 1-2 tabs every 6 hours as needed for pain, dispensed #42 was sent to the [facility] pharmacy located within [facility]. Patient's other medical diagnoses include hypertension and hyperlipidemia. Physical Exam on day of discharge: Status post surgical day number 2 Patient is examined standing at the bedside Patient is awake and alert, and oriented 3 Vital signs stable Good chest excursion with deep inspiration and expiration Abdomen has some mild distention but is still soft Dressing over the right shoulder is removed Surgical site over the right shoulder remains clean, dry, and intact; Incision shows no active drainage, purulence, or obvious signs of infection Upper extremity currently placed in an arm sling Patient is able to wiggle all fingers, thumb, and move wrist throughout range of motion without significant difficulty Full range of motion of the elbow without significant difficulty Neurovascularly intact bilateral upper extremities Capillary refill less than 2 seconds bilateral upper extremities Only catheter intact Procedures: Right total shoulder arthroplasty Patient Condition at Discharge: Stable Plan - Discharge Summary Discharge Rx Participant: Yes New Discharge Prescriptions: New Tamsulosin [Flomax] 0.4 mg PO DAILY #30 cap Docusate [Colace] 100 mg PO BID #60 capsule Doxycycline Hyclate 100 mg PO BID #10 tab HYDROcodone/APAP 7.5-325MG [[place] 7.5-325] 1 - 2 each PO Q6HR PRN #42 tab PRN Reason: Pain Continue Finasteride [Proscar] 5 mg PO Q48H Lisinopril-Hctz 10-12.5 mg [Zestoretic 10-12.5] 1 tab PO DAILY Discharge Medication List Finasteride [Proscar] 5 mg PO Q48H 07/09/16 [History] Lisinopril-Hctz 10-12.5 mg [Zestoretic 10-12.5] 1 tab PO DAILY 07/09/16 [History] Docusate [Colace] 100 mg PO BID #60 capsule 08/19/21 [Rx] Doxycycline Hyclate 100 mg PO BID #10 tab 08/19/21 [Rx] HYDROcodone/APAP 7.5-325MG [[place] 7.5-325] 1 - 2 each PO Q6HR PRN #42 tab 08/19/21 [Rx] Tamsulosin [Flomax] 0.4 mg PO DAILY #30 cap 08/20/21 [Rx] Follow up Appointment(s)/Referral(s): Bobo Quijano MD [STAFF PHYSICIAN] - 3 Days Tyson Quigley MD [STAFF PHYSICIAN] - 08/27/21 1:15 pm Patient Instructions/Handouts: *Surgery [facility] - Shoulder Arthroscopy Activity/Diet/Wound Care/Special Instructions: take meds as directed F/U in office maintain sling keep wound clean and dry may shower in 3 days if no bleeding or drainage Instruct patient on Raygoza catheter care. He should call Dr. Quijano' office on August 24 at 8 AM to arrange Raygoza catheter removal. Discharge Disposition: HOME SELF-CARE
[2021-08-21] MEDS ORDERED: NA PHOS,M-B/NA PHOS,DI-BA 133 ML ENEMA RECTAL ONE (13:30)
[2021-08-21 14:09] VITALS: BP 169/87; PULSE 103; TEMP 98.5
--- NOTE | 2021-08-22 10:44 | P.CONS ---
History of Present Illness - Reason for Consult Consult date: 08/20/21 Medical management - Chief Complaint Right total shoulder arthroplasty - History of Present Illness 70-year-old male patient admitted to the hospital for elective procedure of right total shoulder arthroplasty; patient underwent surgery on 08/19/2021 after failing conservative measures as an outpatient; patient tolerated procedure well without any complications Patient remained stable postprocedure and was planned to be discharged when he complained of urinary retention; Raygoza catheter was placed and patient was started on Flomax 0.4 mg daily in addition to home dose of Proscar; urology was consulted and recommended patient be discharged home on Raygoza catheter in place to reduce likelihood of developing recurrent urinary retention over the weekend; urology did approve Flomax and Proscar and recommended patient follow-up in the office on August 24 for removal of Raygoza cath further evaluation Review of Systems REVIEW OF SYSTEMS: CONSTITUTIONAL: No fever, no malaise, no fatigue. HEENT: No recent visual problems or hearing problems. Denied any sore throat. CARDIOVASCULAR: No chest pain, orthopnea, PND, no palpitations, no syncope. PULMONARY: No shortness of breath, no cough, no hemoptysis. GASTROINTESTINAL: No diarrhea, no nausea, no vomiting, no abdominal pain. NEUROLOGICAL: No headaches, no weakness, no numbness. HEMATOLOGICAL: Denies any bleeding or petechiae. GENITOURINARY: Denies any burning micturition, frequency, or urgency. MUSCULOSKELETAL/RHEUMATOLOGICAL: Denies any joint pain, swelling, or any muscle pain. ENDOCRINE: Denies any polyuria or polydipsia. The rest of the 14-point review of systems is negative. Past Medical History Past Medical History: Hyperlipidemia, Hypertension, Osteoarthritis (OA), Prostate Disorder Additional Past Medical History / Comment(s): BPH. Rt shoulder, bilat wrist pain. History of Any Multi-Drug Resistant Organisms: None Reported Past Surgical History: Hernia Repair, Joint Replacement, Orthopedic Surgery Additional Past Surgical History / Comment(s): Repaired hernia x4, Bilat Total Knee, ORIF Compound fracture Rt wrist, cataract left Past Anesthesia/Blood Transfusion Reactions: No Reported Reaction Past Psychological History: No Psychological Hx Reported Smoking Status: Never smoker Past Alcohol Use History: Occasional Past Drug Use History: None Reported - Past Family History Mother Family Medical History: No Reported History Father Family Medical History: Hypertension Additional Family Medical History / Comment(s): AAA Brother(s) Family Medical History: Cancer Additional Family Medical History / Comment(s): thyroid cancer Medications and Allergies Home Medications Medication Instructions Recorded Confirmed Type Finasteride [Proscar] 5 mg PO Q48H 07/09/16 08/19/21 History Lisinopril-Hctz 10-12.5 mg 1 tab PO DAILY 07/09/16 08/19/21 History [Zestoretic 10-12.5] Docusate [Colace] 100 mg PO BID #60 capsule 08/19/21 Rx Doxycycline Hyclate 100 mg PO BID #10 tab 08/19/21 Rx HYDROcodone/APAP 7.5-325MG [[place] 1 - 2 each PO Q6HR PRN #42 tab 08/19/21 Rx 7.5-325] Tamsulosin [Flomax] 0.4 mg PO DAILY #30 cap 08/20/21 Rx Allergies Allergy/AdvReac Type Severity Reaction Status Date / Time bee venom protein (honey bee) Allergy Anaphylaxis Verified 08/17/21 16:36 heavy metals Allergy problems Uncoded 08/17/21 16:36 with knee implant for years Physical Exam Vitals: Vital Signs Temp Pulse Resp BP Pulse Ox 08/20/21 08:00 16 08/20/21 06:15 97.8 F 87 16 122/70 92 L 08/20/21 01:47 98.1 F 82 15 108/60 91 L 08/19/21 20:00 98.0 F 82 16 104/68 97 08/19/21 16:24 97.8 F 69 19 99/62 96 Intake and Output 08/19/21 08/20/21 08/20/21 22:59 06:59 14:59 Intake Total 1520 Output Total 1235 Balance -1235 1520 Intake: Intake, IV Titration 1200 Amount Lactated Ringers 1,000 ml 1000 @ 100 mls/hr IV .Q10H [facility] Rx#:[id number] Tranexamic Acid in NaCl, 100 Iso-Os 1,000 mg In Saline 1 100ml.bag @ 200 mls/hr IVPB ONCE PRN Rx#: [id number] ceFAZolin 2 gm In Sodium 100 Chloride 0.9% 50 ml @ 100 mls/hr IVPB Q8HR [facility] Rx# :[id number] Oral 320 Output: Drainage 85 Right Shoulder 85 Urine 1150 Straight 1150 Other: # Voids 0 3 # Bowel Movements 0 Weight 81 kg PHYSICAL EXAMINATION: GENERAL: The patient is alert and oriented x3, not in any acute distress. Well developed, well nourished. HEENT: Pupils are round and equally reacting to light. EOMI. No scleral icterus. No conjunctival pallor. Normocephalic, atraumatic. No pharyngeal erythema. No thyromegaly. CARDIOVASCULAR: S1 and S2 present. No murmurs, rubs, or gallops. PULMONARY: Chest is clear to auscultation, no wheezing or crackles. ABDOMEN: Soft, nontender, nondistended, normoactive bowel sounds. No palpable or ganomegaly. MUSCULOSKELETAL: No joint swelling or deformity. EXTREMITIES: No cyanosis, clubbing, or pedal edema. NEUROLOGICAL: Gross neurological examination did not reveal any focal deficits. SKIN: No rashes. Results CBC & Chem 7: 08/20/21 07:06 Assessment and Plan Assessment: 1. Right total shoulder arthroplasty; POD #1 - Your management 2. Urinary retention; postop; Raygoza catheter in place - Consult urology for further recommendations 3. Hypertension; continue with home dose of [id number] daily 4. BPH; patient takes Proscar 5 mg every 48 hours; we will add Flomax 0.4 mg daily 5. Constipation; Colace 100 mg twice a day DVT prophylaxis; early ambulation CODE STATUS; full code
--- NOTE | 2021-08-22 10:45 | P.PN ---
Subjective Progress Note Date: 08/21/21 70-year-old male patient admitted to the hospital for elective procedure of right total shoulder arthroplasty; patient underwent surgery on 08/19/2021 after failing conservative measures as an outpatient; patient tolerated procedure well without any complications Patient remained stable postprocedure and was planned to be discharged when he complained of urinary retention; Raygoza catheter was placed and patient was started on Flomax 0.4 mg daily in addition to home dose of Proscar; urology was consulted and recommended patient be discharged home on Raygoza catheter in place to reduce likelihood of developing recurrent urinary retention over the weekend; urology did approve Flomax and Proscar and recommended patient follow-up in the office on August 24 for removal of Raygoza cath further evaluation 08/21/2021 Patient is seen and evaluated in room at bedside; no specific complaints Patient has been evaluated by urology and is recommended to continue with Raygoza catheter and follow-up as an outpatient Orthopedic surgery has cleared patient for discharge Home medications are reviewed and patient will continue same medications and follow-up with primary care physician as outpatient Objective - Vital Signs Vital signs: Vital Signs Temp 98.7 F 08/21/21 07:36 Pulse 86 08/21/21 07:36 Resp 17 08/21/21 07:36 BP 155/86 08/21/21 07:36 Pulse Ox 97 08/21/21 07:36 FiO2 Intake & Output 08/20/21 08/21/21 08/21/21 18:59 06:59 18:59 Output Total 2609 1850 Balance -2609 -1850 Output: Urine 1550 1850 Straight 600 Uretheral (Raygoza) 650 Post Void Residual 1059 Other: Voiding Method Indwelling Catheter Indwelling Catheter # Bowel Movements 0 - Exam PHYSICAL EXAMINATION: GENERAL: The patient is alert and oriented x3, not in any acute distress. Well developed, well nourished. HEENT: Pupils are round and equally reacting to light. EOMI. No scleral icterus. No conjunctival pallor. Normocephalic, atraumatic. No pharyngeal erythema. No thyromegaly. CARDIOVASCULAR: S1 and S2 present. No murmurs, rubs, or gallops. PULMONARY: Chest is clear to auscultation, no wheezing or crackles. ABDOMEN: Soft, nontender, nondistended, normoactive bowel sounds. No palpable organomegaly. MUSCULOSKELETAL: No joint swelling or deformity. EXTREMITIES: No cyanosis, clubbing, or pedal edema. NEUROLOGICAL: Gross neurological examination did not reveal any focal deficits. SKIN: No rashes. - Labs CBC & Chem 7: 08/20/21 07:06 Labs: Abnormal Lab Results - Last 24 Hours (Table) 08/20/21 Range/Units 07:06 RBC 3.26 L (4.40-5.60) X 10*6/uL Hgb 10.6 L (13.0-17.0) g/dL Hct 32.3 L (39.6-50.0) % MCV 99.1 H (80.0-97.0) fL MCH 32.5 H (27.0-32.0) pg Plt Count 139 L (140-440) X 10*3/uL Lymphocytes # 0.57 L (0.90-5.00) X 10*3/uL Assessment and Plan Assessment: 1. Right total shoulder arthroplasty; POD #1 - Your management 2. Urinary retention; postop; Raygoza catheter in place - Consult urology for further recommendations 3. Hypertension; continue with home dose of [id number] daily 4. BPH; patient takes Proscar 5 mg every 48 hours; we will add Flomax 0.4 mg daily 5. Constipation; Colace 100 mg twice a day DVT prophylaxis; early ambulation CODE STATUS; full code
== END 2021-08-21 16:37 | disposition home or self-care (01) ==
LOC: OR 05:33 → 4SSUR 15:07 → OR 08-21 16:37
PROVIDERS: ATTEND Orthopaedic Surgery Sports Medicine
DX: M19.011 Primary osteoarthritis, right shoulder (principal); G89.18 Other acute postprocedural pain; E78.5 Hyperlipidemia, unspecified; I10 Essential (primary) hypertension; K59.00 Constipation, unspecified; N40.1 Benign prostatic hyperplasia with lower urinary tract symptoms; Z82.49 Family history of ischemic heart disease and other diseases of the circulatory system; Z91.030 Bee allergy status; R33.8 Other retention of urine; Z79.899 Other long term (current) drug therapy
CPT/HCPCS: 23472; 64415; 76942; 85025; 88300; 73020; C1776; C1713; S0138; J2250; J3370; J2710; J0690 ×3; J2405; J1170 ×4; J2795; J2370; J0330; J2704; J2001

== ENCOUNTER 2024-01-09 11:53 | Emergency (ER) | payer MEDICARE ==
--- NOTE | 2024-01-09 12:40 | ED ---
General Adult HPI - General Chief complaint: Extremity Problem,Nontraumatic Stated complaint: L Ankle Swelling Time Seen by Provider: 01/09/24 12:00 Source: patient, RN notes reviewed, old records reviewed Mode of arrival: wheelchair Limitations: no limitations - History of Present Illness Initial comments: This is a 73-year-old male who presents to the emergency department stating that his left ankle has been swollen for the last 2 to 3 days. Patient states he does not believe he had any trauma. Patient states it hurts on the lateral and a little bit on the medial aspect of the ankle. Patient denies denies any foot pain. Patient denies calf pain. Patient denies any leg swelling. Patient denies has any leg pain - Related Data Home Medications Medication Instructions Recorded Confirmed Finasteride [Proscar] 5 mg PO Q48H 07/09/16 08/19/21 Lisinopril-Hctz 10-12.5 mg 1 tab PO DAILY 07/09/16 08/19/21 [Zestoretic 10-12.5] Previous Rx's Medication Instructions Recorded Docusate [Colace] 100 mg PO BID #60 capsule 08/19/21 Doxycycline Hyclate 100 mg PO BID #10 tab 08/19/21 HYDROcodone/APAP 7.5-325MG [[place] 1 - 2 each PO Q6HR PRN #42 tab 08/19/21 7.5-325] Tamsulosin [Flomax] 0.4 mg PO DAILY #30 cap 08/20/21 Ketorolac [Toradol] 10 mg PO Q8HR #15 tab 01/09/24 Allergies Allergy/AdvReac Type Severity Reaction Status Date / Time bee venom protein (honey bee) Allergy Anaphylaxis Verified 01/09/24 11:57 heavy metals Allergy problems Uncoded 01/09/24 11:57 with knee implant for years Review of Systems ROS Statement: Those systems with pertinent positive or pertinent negative responses have been documented in the HPI. ROS Other: All systems not noted in ROS Statement are negative. Past Medical History Past Medical History: Hypertension, Prostate Disorder Additional Past Medical History / Comment(s): BPH. Rt shoulder, bilat wrist pain. History of Any Multi-Drug Resistant Organisms: None Reported Past Surgical History: Orthopedic Surgery Additional Past Surgical History / Comment(s): Repaired hernia, Left Knee repair, Compound fracture wrist.cataract left, right shoulder Past Anesthesia/Blood Transfusion Reactions: No Reported Reaction Past Psychological History: No Psychological Hx Reported Smoking Status: Never smoker Past Alcohol Use History: Occasional Past Drug Use History: None Reported - Past Family History Mother Family Medical History: No Reported History Father Family Medical History: Hypertension Additional Family Medical History / Comment(s): AAA Brother(s) Family Medical History: Cancer Additional Family Medical History / Comment(s): thyroid cancer General Exam - General Exam Comments Initial Comments: GENERAL Patient is well-developed and well-nourished. Patient is in mild distress. EYES Patient's pupils are equal and round. Extraocular motion is intact SKIN Unremarkable NEURO The patient is alert and oriented A&Ox3 PYSCH Patient has normal interpersonal interactions. MUSCULOSKELETAL Left ankle swollen painful right anterior lateral malleolus and some medial malleolus tenderness. There is no tenderness of the foot leg calf or knee Limitations: no limitations Course Vital Signs 01/09/24 01/09/24 11:54 13:50 Temperature 97.8 F 98.6 F Pulse Rate 99 87 Respiratory 20 18 Rate Blood Pressure 157/94 120/79 O2 Sat by Pulse 98 96 Oximetry Medical Decision Making - Medical Decision Making Was pt. sent in by a medical professional or institution (, PA, LOG GRADER, urgent care, hospital, or [place] health care facility...) When possible be specific @ -No Did you speak to anyone other than the patient for history (EMS, parent, family, police, friend...)? What history was obtained from this source @ -No Did you review nursing and triage notes (agree or disagree)? Why? @ -I reviewed and agree with nursing and triage notes Were old charts reviewed (outside hosp., previous admission, EMS record, old EKG, old radiological studies, urgent care reports/EKG's, [place] health care facility records)? Report findings @ -No old charts were reviewed Differential Diagnosis? @ -Differential Musculoskeletal Muscular strain, contusion, ligament sprain, fracture, arthritis, septic arthritis, bursitis, cellulitis, muscle spasm, nerve compression, DVT, arterial occlusion, herpes zoster, electrolyte abnormality, tumor.... This is not meant to be in all inclusive list EKG interpreted by me (3pts min.). @ -As above X-rays interpreted by me (1pt min.). @ -X-ray of the ankle shows no acute abnormality CT interpreted by me (1pt min.). @ -None done U/S interpreted by me (1pt. min.). @ -None done What testing was considered but not performed or refused? (CT, X-rays, U/S, labs)? Why? @ -None What meds were considered but not given or refused? Why? @ -None Did you discuss the management of the patient with other professionals (professionals i.e. Dr., PA, LOG GRADER, lab, RT, psych nurse, social science manager, punch press operator, teacher, chief security and safety officer, case management social worker)? Give summary @ -No Was smoking cessation discussed for >3mins.? @ -No Was critical care preformed (if so, how long)? @ -No Were there social determinants of health that impacted care today? How? (Homelessness, low income, unemployed, alcoholism, drug addiction, transportation, low edu. Level, literacy, decrease access to med. care, longterm, rehab)? @ -No Was there de-escalation of care discussed even if they declined (Discuss DNR or withdrawal of care, Hospice)? DNR status @ -No What co-morbidities impacted this encounter? (DM, HTN, Smoking, COPD, CAD, Cancer, CVA, ARF, Chemo, Hep., AIDS, mental health diagnosis, sleep apnea, morbid obesity)? @ -None Was patient admitted / discharged? Hospital course, mention meds given and route, prescriptions, significant lab abnormalities, going to OR and other pertinent info. @ -Patient received a Toradol shot in the emergency department. Patient was Pastor wrapped prior to discharge. Patient will follow-up with Ortho if the symptoms do not resolve. I did discuss the possibility this was gout and patient will go home on anti-inflammatory Undiagnosed new problem with uncertain prognosis? @ -No Drug Therapy requiring intensive monitoring for toxicity (Heparin, Nitro, Insuli n, Cardizem)? @ -No Were any procedures done? @ -No Diagnosis/symptom? @ -Ankle sprain Acute, or Chronic, or Acute on Chronic? @ -Acute Uncomplicated (without systemic symptoms) or Complicated (systemic symptoms)? @ -Uncomplicated Side effects of treatment? @ -No Exacerbation, Progression, or Severe Exacerbation? @ -No Poses a threat to life or bodily function? How? (Chest pain, [place], VT, pneumonia, PE, COPD, DKA, ARF, appy, cholecystitis, CVA, Diverticulitis, Homicidal, Suicidal, threat to staff... and all critical care pts) @ -No Disposition Clinical Impression: Ankle sprain Disposition: HOME SELF-CARE Instructions (If sedation given, give patient instructions): Ankle Sprain (ED), Gout (ED) Prescriptions: Ketorolac [Toradol] 10 mg PO Q8HR #15 tab Is patient prescribed a controlled substance at d/c from ED?: No Referrals: Tahir Sebastian MD [Primary Care Provider] - 1-2 days Time of Disposition: 13:40
--- NOTE | 2024-01-09 13:01 | XR ---
EXAMINATION TYPE: XR ankle complete LT DATE OF EXAM: 01/09/2024 12:55 PM CLINICAL INDICATION: Male, 73 years old with history of Swelling and pain COMPARISON: None TECHNIQUE: XR ankle complete LT; ankle is imaged in frontal, lateral and oblique projections. FINDINGS: There is no evidence of acute osseous pathology. No evidence of subluxation or dislocation. Kager's fat pad is intact. Mild soft tissue swelling around the ankle. No radiopaque foreign bodies are ident ified. IMPRESSION: 1. No evidence of acute fracture. 2. Subcutaneous swelling around the ankle likely secondary to underlying soft tissue injury. [facility], , 01/09/2024 12:58 PM
[2024-01-09] MEDS: KETOROLAC 15 MG/ML 1 ML VIAL IM STA (13:11)
[2024-01-09] MEDS: ACET/COD 300 MG/30 MG STARTER PACK 6 TAB BTL PO STA (13:49)
[2024-01-09 13:52] VITALS: BP 120/79; PULSE 87; RESP 18; TEMP 98.6
== END 2024-01-09 13:51 | disposition home or self-care (01) ==
LOC: EC 11:53
CPT/HCPCS: 96372; 99283